=== PATIENT | male | born 1955 | race Two or more races ===

== ENCOUNTER 2025-05-21 15:08 | Inpatient (IN) | payer MEDICARE ==
[2025-05-21] MEDS ORDERED: ACETAMINOPHEN INJECTION 100 ML ONE (16:19)
[2025-05-21] MEDS ORDERED: LIDOCAINE 4% PATCH TP ONE (16:19)
[2025-05-21 16:20] LABS: ABSOLUTE IMMATURE GRANULOCYTES 0.01 x10^3/uL (0.0-0.031); BASOPHILS # 0.03 x10^3/uL (0.01-0.08); EOSINOPHIL % 1.3 % (0.8-7.0); EOSINOPHILS # 0.06 x10^3/uL (0.04-0.54); MCHC 32.6 g/dl (32.3-36.5); MEAN CELL VOLUME 85.9 fl (79.0-92.2); MEAN PLT VOLUME 10.8 fl (9.4-12.4); MONOCYTE # 0.35 x10^3/uL (0.30-0.82); MONOCYTE % 7.8 % (5.3-12.2); RDW 13.0 % (12.2-16.4)
[2025-05-21] MEDS: LIDOCAINE 5% TOPICAL PATCH TP ONE (16:26)
[2025-05-21] MEDS: ACETAMINOPHEN 1000 MG/100 ML BAG IVPB ONE (16:26)
[2025-05-21] MEDS: SODIUM CHLORIDE 0.9% 1000 ML INFUS.BAG IV ONE (16:26)
[2025-05-21 16:40] LABS: CO2 28.0 mmol/L (21-32); GLUCOSE,RANDOM 225.0 mg/dL (74-106)
[2025-05-21 16:43] LABS: CREATININE 1.4 mg/dL (0.55-1.3); SGPT/ALT 23.0 U/L (13-61)
[2025-05-21 16:44] LABS: SGOT/AST 26.0 U/L (15-37)
[2025-05-21 16:45] LABS: TOT PROT 7.2 g/dl (6.4-8.2)
[2025-05-21 16:46] LABS: ALK PHOS 117.0 U/L (45-117)
[2025-05-21] MEDS ORDERED: KETOROLAC TROMETHAMINE 15 MG/ML VIAL ONE (17:23)
[2025-05-21 17:37] LABS: HCV DIAGNOSTIC IN-HOUSE W/RFLX NON-REACTIVE (NONREACTIVE)
[2025-05-21 17:38] LABS: HIV INTERPRETATION NEGATIVE (NEGATIVE)
[2025-05-21] MEDS: SODIUM CHLORIDE 0.9% 500 ML INFUS.BAG IV ONE (17:42)
[2025-05-21] MEDS: KETOROLAC TROMETHAMINE 15 MG/ML VIAL IVPUSH ONE (17:42)
[2025-05-21] MEDS: methylPREDNISolone 8 MG TABLET PO SCH (18:06)
[2025-05-21 18:27] LABS: URINE APPEARANCE CLEAR; URINE BILIRUBIN NEGATIVE (NEGATIVE); URINE COLOR YELLOW; URINE GLUCOSE (UA) TRACE (NEGATIVE); URINE KETONE NEGATIVE (NEGATIVE); URINE LEUK ESTERASE NEGATIVE (NEGATIVE); URINE NITRITE NEGATIVE (NEGATIVE); URINE PROTEIN NEGATIVE (NEGATIVE); URINE UROBILINOGEN 0.2 mg/dL (0.2-1.0)
[2025-05-21] MEDS ORDERED: ACETAMINOPHEN 500 MG TABLET (FP) ONE (18:32)
[2025-05-21] MEDS: LIDOCAINE PATCH REMOVAL MC SCH (21:35)
[2025-05-21] MEDS ORDERED: ATORVASTATIN CA 10 MG TABLET (FP) ONE (21:37)
[2025-05-21] MEDS: ATORVASTATIN CA 20 MG TABLET (FP) PO SCH (21:44)
[2025-05-21] MEDS: ACETAMINOPHEN 500 MG TABLET (FP) PO PRN (21:44)
[2025-05-22 07:28] LABS: CO2 28.0 mmol/L (21-32); GLUCOSE,RANDOM 191.0 mg/dL (74-106)
[2025-05-22 07:31] LABS: CREATININE 1.0 mg/dL (0.55-1.3)
[2025-05-22 07:40] LABS: ABSOLUTE IMMATURE GRANULOCYTES 0.01 x10^3/uL (0.0-0.031); BASOPHILS # 0.02 x10^3/uL (0.01-0.08); EOSINOPHIL % 1.4 % (0.8-7.0); EOSINOPHILS # 0.07 x10^3/uL (0.04-0.54); MCHC 32.8 g/dl (32.3-36.5); MEAN CELL VOLUME 85.2 fl (79.0-92.2); MEAN PLT VOLUME 11.7 fl (9.4-12.4); MONOCYTE # 0.44 x10^3/uL (0.30-0.82); MONOCYTE % 8.7 % (5.3-12.2); RDW 13.1 % (12.2-16.4)
[2025-05-22] MEDS: POTASSIUM CHLORIDE TABS 20 MEQ TABLET.ER (FP) PO ONE (09:51)
[2025-05-22] MEDS: amLODIPine BESYLATE 5 MG TABLET (FP) PO SCH (09:51)
[2025-05-22] MEDS: CYANOCOBALAMIN 1,000 MCG TABLET (FP) PO SCH (09:52)
[2025-05-22] MEDS ORDERED: LIDOCAINE PATCH REMOVAL MC SCH (10:00)
[2025-05-22] MEDS: INSULIN ASPART SLIDING SCALE (NOVOLOG) 1 VIAL SQ SCH (12:05)
[2025-05-22] MEDS ORDERED: HEPARIN NA (PORCINE) 5,000 UNITS/ML 1ML VIAL SQ SCH (15:12)
[2025-05-22] MEDS: ENOXAPARIN NA (PORCINE) 40 MG/0.4 ML DISP.SYRIN SQ SCH (16:48)
[2025-05-22] MEDS: LIDOCAINE 4% PATCH TP ONE (23:00)
[2025-05-23 06:59] LABS: MCHC 32.3 g/dl (32.3-36.5); MEAN CELL VOLUME 85.8 fl (79.0-92.2); MEAN PLT VOLUME 11.7 fl (9.4-12.4); RDW 13.1 % (12.2-16.4)
[2025-05-23 07:43] LABS: CO2 28.0 mmol/L (21-32)
[2025-05-23 07:44] LABS: GLUCOSE,RANDOM 191.0 mg/dL (74-106)
[2025-05-23 07:47] LABS: CREATININE 0.8 mg/dL (0.55-1.3)
[2025-05-23] MEDS: ACETAMINOPHEN 500 MG TABLET (FP) PO SCH (07:55)
[2025-05-23 08:01] LABS: IRON SERUM 50.0 ug/dL (50-175)
[2025-05-23] MEDS: PREGABALIN 50 MG CAPSULE PO SCH (09:34)
[2025-05-23] MEDS: KETOROLAC TROMETHAMINE 15 MG/ML VIAL IVPUSH SCH (09:35)
[2025-05-23] MEDS: METHOCARBAMOL 500 MG TABLET PO SCH (09:36)
[2025-05-23 14:53] VITALS: BMI 31.5
[2025-05-23] MEDS: LIDOCAINE 5% TOPICAL PATCH TP SCH (18:51)
[2025-05-23] MEDS: POLYETHYLENE GLYCOL (HEALTHYLAX) 3350 17 GM PACKET PO SCH (22:02)
[2025-05-24] MEDS: LIDOCAINE PATCH REMOVAL MC SCH (06:51)
[2025-05-24 06:56] LABS: MCHC 32.2 g/dl (32.3-36.5); MEAN CELL VOLUME 85.5 fl (79.0-92.2); MEAN PLT VOLUME 11.5 fl (9.4-12.4); RDW 13.0 % (12.2-16.4)
[2025-05-24 07:04] LABS: INR 1.07 (0.83-1.09); PROTHROMBIN TIME (PATIENT) 11.8 SEC (9.7-13.0)
[2025-05-24 07:12] LABS: CO2 29.0 mmol/L (21-32)
[2025-05-24 07:13] LABS: GLUCOSE,RANDOM 151.0 mg/dL (74-106)
[2025-05-24 07:16] LABS: CREATININE 0.8 mg/dL (0.55-1.3)
[2025-05-24 09:03] LABS: ERYTHROCYTE SEDIMENTATION RATE 34 mm/hr (0-20)
[2025-05-25 11:02] VITALS: BP 141/53; PULSE 59; RESP 17; TEMP 97.4
[2025-05-25] MEDS: KETOROLAC TROMETHAMINE 30 MG/1 ML VIAL IVPUSH ONE (12:11)
[2025-05-25] MEDS: MAGNESIUM CITRATE 300 ML BOTTLE PO ONE (13:11)
[2025-05-25] MEDS: SENNOSIDES 8.6MG TABLET (FP) PO SCH (13:11)
== END 2025-05-25 14:05 | disposition home or self-care (01) | DRG 347 ==
LOC: JER 15:08 → JERBED 16:12 → J2W 05-22 02:38 → EDBD 05-24 10:42 → OBSVTOIN 05-24 10:42
PROVIDERS: ADMIT Internal Medicine; ATTEND Internal Medicine
DX: M54.16 Radiculopathy, lumbar region (principal); D64.9 Anemia, unspecified; E11.9 Type 2 diabetes mellitus without complications; E86.0 Dehydration; I10 Essential (primary) hypertension; R55 Syncope and collapse; E78.5 Hyperlipidemia, unspecified; K59.00 Constipation, unspecified; M54.31 Sciatica, right side; M54.32 Sciatica, left side; R26.2 Difficulty in walking, not elsewhere classified
CPT/HCPCS: 36415; 71045-TC-FY; 72131-TC; 72146-TC; 72148-TC; 72170-TC-FY; 72192-TC; 73502-TC-RT-FY; 73562-TC-RT-FY; 80048; 80053; 81003; 82607; 82728; 82746; 82962; 83036; 83540; 83550; 83735; 84100; 84439; 84443; 84484; 85025; 85027; 85610; 85651; 86140; 86803; 87086; 87389; 93005; 93010; 93306-TC; 97116-GP; 97162-GP; 99285-25; G0378